=== PATIENT | male | born 1980 | race Caucasian/White ===

== ENCOUNTER 2017-11-11 13:48 | Emergency (ER) | payer OTHER ==
[~2017-11-11] VITALS: Ht 162.6 cm; Wt 81.7 kg
[~2017-11-11 13:48] MED LIST: DOXYCYCLINE 10100 MG PO; NAPROSYN500 MG PO; NOHOMEMEDICATIONS; NORCO 5-325 TA1 EACH PO; ROBAXIN500 MG PO; TRAMADOL 50 MG50 MG PO; ULTRAM 50MG TAB50 MG PO
[2017-11-11] MEDS ORDERED: OSELB75 PO (14:28)
== END 2017-11-11 14:48 | disposition home or self-care (01) ==
LOC: ER 13:48
DX: J11.1 Influenza due to unidentified influenza virus with other respiratory manifestations (principal); F17.210 Nicotine dependence, cigarettes, uncomplicated

== ENCOUNTER 2017-11-17 17:43 | Emergency (ER) | payer OTHER ==
[~2017-11-17] VITALS: Ht 160 cm; Wt 77.1 kg
[~2017-11-17 17:43] MED LIST changes: +OSELB75 PO
== END 2017-11-17 18:14 | disposition home or self-care (01) ==
LOC: ER 17:43
DX: J06.9 Acute upper respiratory infection, unspecified (principal); F17.210 Nicotine dependence, cigarettes, uncomplicated

== ENCOUNTER 2019-03-17 11:47 | Emergency (ER) | payer OTHER ==
[~2019-03-17] VITALS: Ht 160 cm; Wt 77.1 kg
[2019-03-17 13:20] VITALS: BP 150/99
[2019-03-17] MEDS ORDERED: MOBIC7.5 MG PO (13:39)
== END 2019-03-17 13:20 | disposition home or self-care (01) ==
LOC: ER 11:47
DX: S93.491A Sprain of other ligament of right ankle, initial encounter (principal); F17.210 Nicotine dependence, cigarettes, uncomplicated; W22.8XXA Striking against or struck by other objects, initial encounter; Y92.89 Other specified places as the place of occurrence of the external cause; Y93.89 Activity, other specified; Y99.8 Other external cause status

== ENCOUNTER 2019-05-26 14:25 | Emergency (ER) | payer OTHER ==
[~2019-05-26] VITALS: Ht 162.6 cm; Wt 75.8 kg
[~2019-05-26 14:25] MED LIST changes: +MOBIC7.5 MG PO
[2019-05-26 15:45] LABS: ABSOLUTE NEUTROPHILS 6.5 thou/uL (1.4-8.2); BASOPHILS 1.7 % (0.0-2.0); EOSINOPHILS 1.3 % (0.0-3.0); HEMATOCRIT 43.4 % (42.0-52.0); HEMOGLOBIN 14.9 gm/dL (14.0-18.0); MCH 32.7 pg (26.0-34.0); MCHC 34.3 g/dL (28.0-37.0); MCV 95.4 fL (80.0-100.0); MONOCYTES 7.2 % (1.0-8.0); PLATELET COUNT 252 thou/uL (150-400); POLYS 62.8 % (36.0-66.0); RBC 4.56 mil/uL (4.50-6.00); RDW 14.6 % (10.5-14.5); WBC 10.4 thou/uL (4.0-11.0)
[2019-05-26 15:57] LABS: ANION GAP 13 mmol/L (7-16); BUN 13 mg/dL (7-18); CALCIUM 9.4 mg/dL (8.5-10.1); CHLORIDE 102 mmol/L (98-107); CO2 24 mmol/L (21-32); GLUCOSE 100 mg/dL (74-106); POTASSIUM 4.4 mmol/L (3.5-5.1); SODIUM 139 mmol/L (136-145)
[2019-05-26 16:07] LABS: ALBUMIN 4.1 g/dL (3.4-5.0); SGOT 118 U/L (15-37); SGPT 124 U/L (30-65); TOTAL BILIRUBIN 0.9 mg/dL (<0.1-1.0); TOTAL PROTEIN 8.5 g/dL (6.4-8.2); TROPONIN-I <0.06 ng/mL (<0.06)
[2019-05-26] MEDS ORDERED: HYDROCHLOROTHIA25 M2 PO (16:20)
[2019-05-26] MEDS ORDERED: LISINOPRIL20 MG PO (16:25)
[2019-05-26 16:40] VITALS: BP 138/98
--- NOTE | 2019-05-28 13:49 | EKG ---
[place] [address] [place] [address] ELECTROCARDIOGRAM REPORT Name: ELIZABETHCHALINO WEIR [id number] Admission: 05/26/19 Attend Phys: Discharge: 05/26/19 Date of : 84 Report #: [id number] THIS REPORT FOR: //name// [facility] ED Test Date: 2019-05-26 Test Time: 15:20:11 Pat Name: CHALINO JOHNSON Department: Room: Gender: [employer] Worker: ANNE-MARIE : 1980 Requested By: Robinson Morin Order Number: [id number] MD: Yobani Pineda Measurements Intervals [place] Rate: 84 P: 31 AL: 136 QRS: 47 QRSD: 87 T: 23 QT: 375 QTc: 444 Interpretive Statements Sinus rhythm Normal tracing No previous ECG available for comparison Electronically Signed On 05-28-2019 13:49:10 CDT by Yobani Pineda [email or web address] <ELECTRONICALLY SIGNED> By: Yobani Pineda MD, [facility] 05/28/19 1349 1520 1520 Yobani Pineda MD, FACC /EPI
== END 2019-05-26 16:40 | disposition home or self-care (01) ==
LOC: ER 14:25
PROVIDERS: Physician Assistant
DX: R42 Dizziness and giddiness (principal); I10 Essential (primary) hypertension; F17.210 Nicotine dependence, cigarettes, uncomplicated; Z79.899 Other long term (current) drug therapy; Z98.890 Other specified postprocedural states

== ENCOUNTER 2020-04-09 13:35 | Emergency (ER) | payer OTHER ==
[~2020-04-09] VITALS: Ht 160 cm; Wt 68.0 kg
[~2020-04-09 13:35] MED LIST changes: +HYDROCHLOROTHIA25 M2 PO; +LISINOPRIL20 MG PO
[2020-04-09] MEDS ORDERED: NORVASC5 MG PO (13:52)
[2020-04-09] MEDS ORDERED: CYCLOBENZAPRINE10 MG PO (13:53)
[2020-04-09] MEDS ORDERED: AMITRIPTYLINE H25 M2 PO (13:53)
[2020-04-09 14:52] VITALS: BP 168/94
== END 2020-04-09 15:01 | disposition home or self-care (01) ==
LOC: ER 13:35
DX: S50.861A Insect bite (nonvenomous) of right forearm, initial encounter (principal); F17.210 Nicotine dependence, cigarettes, uncomplicated; Z79.899 Other long term (current) drug therapy; W57.XXXA Bitten or stung by nonvenomous insect and other nonvenomous arthropods, initial encounter; Y93.89 Activity, other specified; Y92.89 Other specified places as the place of occurrence of the external cause; Y99.8 Other external cause status